=== PATIENT | male | born 1970 | race African-American/Black ===

== ENCOUNTER 2021-04-20 11:50 | Emergency (ER) | payer SELFPAY ==
--- NOTE | 2021-04-20 13:41 | RAD REPORT ---
EXAM DESCRIPTION: RAD - Ankle Left 3 View - 04/20/2021 1:12 pm CLINICAL HISTORY: PAIN, twisting injury COMPARISON: None. FINDINGS: No fracture, dislocation or periosteal reaction. No joint effusion seen. No joint space na rrowing. No soft tissue abnormality. Soft tissue swelling surrounds the left ankle. IMPRESSION: Soft tissue swelling with no left ankle fracture.
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
[2021-04-20 14:31] VITALS: BP 137/92; TEMP 97.6; O2SAT 100
== END 2021-04-20 14:22 | disposition home or self-care (01) ==
LOC: ER 11:50
DX: S93.402A Sprain of unspecified ligament of left ankle, initial encounter (principal); F17.210 Nicotine dependence, cigarettes, uncomplicated; Y93.67 Activity, basketball
CPT/HCPCS: 99283